=== PATIENT | female | born 1945 | race Caucasian/White ===

== ENCOUNTER 2019-06-16 13:21 | Emergency (ER) | payer MEDICARE, SELFPAY ==
[2019-06-16 13:31] VITALS: BP 134/79; PULSE 89; RESP 20; TEMP 36.8; O2SAT 98
--- NOTE | 2019-06-16 13:31 | ED.GENADULT ---
HPI - General Adult General Chief complaint: Recheck/Abnormal Lab/Rx Stated complaint: trach came out wont go back in Time Seen by Provider: 06/16/19 13:30 Source: patient Mode of arrival: Ambulatory Limitations: no limitations History of Present Illness HPI narrative: Patient comes emergency department complaining of her tracheostomy tube coming out. She states that she had a trach placed about 2 and [address] months ago [address] Dr. Andino at [facility], and that it has come out a couple of times since placement. However, the patient states that normally she is able to replace herself right away. This morning however, the patient states she was unable to get the tracheostomy tube back in place, and estimates that the tube was out for about an hour before coming to the emergency department. Patient denies any difficulty breathing. She has not had a cough or fever. No choking episodes since the tube came out. Patient states she is seen for her metastatic breast cancer by Dr. Flores at [facility] in [place]. She is not exactly sure why she had to have the trach placed. She says it was ?because of her breast cancer?, but cannot specify exactly for what reason, such as mass effect on the airway or nerve dysfunction. Patient denies difficulty breathing with the trach tube out. Related Data Home Medications Medication Instructions Recorded Confirmed amlodipine 10 mg PO DAILY 06/16/19 06/16/19 lorazepam 0.25 - 0.5 mg PO DAILY PRN 06/16/19 06/16/19 mirtazapine 15 mg PO BEDTIME 06/16/19 06/16/19 sertraline [Zoloft] 100 mg PO DAILY 06/16/19 06/16/19 Review of Systems Constitutional Constitutional: Denies chills, Denies fatigue, Denies fever(s), Denies frequent falls, Denies lethargy and Denies weakness Eyes Eyes: Denies change in vision, Denies eye discharge, Denies irritation and Denies loss of vision ENT Ears, Nose, Mouth, and Throat: Denies change in voice, Denies dizziness, Denies neck pain, Denies sore throat and Denies throat swelling Cardiovascular Cardiovascular: Denies chest pain, Denies irregular heart rhythm, Denies lightheadedness, Denies palpitations, Denies dyspnea, Denies dyspnea on exertion and Denies orthopnea Respiratory Respiratory: Denies cough, Denies dyspnea, Denies dyspnea on exertion and Denies wheezing Gastrointestinal Gastrointestinal: Denies abdominal pain, Denies change in bowel habits, Denies diarrhea, Denies nausea and Denies vomiting Genitourinary Genitourinary: Denies hematuria, Denies flank pain, Denies urinary incontinence and Denies urinary urgency Musculoskeletal Musculoskeletal: Denies back pain, Denies muscle weakness, Denies neck pain, Denies numbness and Denies tingling Integumentary/Breasts Skin/Breast: Denies pruritus, Denies erythema, Denies rash and Denies wounds Neurologic Neurologic: Denies behavioral changes, Denies confusion, Denies dizziness, Denies frequent falls, Denies loss of vision, Denies numbness, Denies tingling and Denies weakness Psychiatric Psychiatric: Denies anxiety, Denies behavioral changes, Denies confusion, Denies depression, Denies homicidal ideation and Denies suicidal ideation Endocrine Endocrine: Denies fatigue, Denies flushing and Denies palpitations Hematologic/Lymphatic Hematologic/Lymphatic: Denies easy bruising Allergic/Immunologic Allergic/Immunologic: Denies urticaria, Denies throat swelling and Denies wheezing Patient History Medical History Metastatic breast cancer (Acute) Tracheostomy complication (Acute) Surgical History Status post tracheostomy (Acute) Social History (Updated 06/16/19 @ 15:02 by Samara Mo MD) Smoking Status: Never smoker Exam Initial Vital Signs Initial Vital Signs: Vital Signs Temperature 98.3 F 06/16/19 13:31 Pulse Rate 89 06/16/19 13:31 Respiratory Rate 20 06/16/19 13:31 Blood Pressure 134/79 06/16/19 13:31 Pulse Oximetry 98 06/16/19 13:31 Const General: cooperative and well developed Nutritional Appearance: well nourished Orientation: alert, awake, oriented x3 and not confused [facility] Head: normocephalic and atraumatic Ears: external ears normal Nose: external nose normal and No nasal discharge Face and sinus: face symmetric and No dry mucous membranes Mouth: oral mucosae normal and moist mucous membranes Teeth and gingiva: dentition normal Eyes General: appearance normal, both eyes and all related structures Eyelids: eyelids normal Conjunctivae: conjunctivae normal Sclera: sclerae normal Pupils: PERRL EOM: EOM intact bilaterally Neck Neck: normal visual inspection, trachea midline, No lymphadenopathy, No midline deformity and No JVD Lymphatic: No lymphedema Other: Patient has a midline tracheostomy site that is clean dry and intact. [place], healthy mucosal tissue is noted within the ostomy site. An approximately 4 mm diameter opening is noted within the mucosal tissue. A mild amount of air is coming out of the site with each breath. Chest Chest: normal inspection of the chest Resp Effort & Inspection: normal respiratory effort, able to speak in complete sentences, no respiratory distress and no use of accessory muscles Auscultation: clear to auscultation bilaterally, no rales, no rhonchi and no wheezes Other: Patient's voice is hoarse and airy, but she speaks otherwise without difficulty. She is breathing comfortably and in no apparent distress. Cardio Rate: regular rate Rhythm: regular rhythm Heart Sounds: no click, no gallops, no murmurs and no rubs Pulses: normal peripheral pulses GI Inspection: non-distended Palpation: soft, no hepatosplenomegaly, No guarding, No pulsatile mass and No tender Auscultation: normal bowel sounds Back/Spine/Pelvis Back: No CVA tenderness Cervical Spine: cervical ROM normal and No pain with cervical ROM Thoracic/Lumbar Spine: thoracic and lumbar spine normal to inspection Skin General: no rashes or lesions noted, No jaundice and No petechiae Neuro General: alert, oriented x3, gait normal and no focal motor deficits Speech: speech normal Extrem General: full ROM, no clubbing, cyanosis or edema, no pedal edema and no calf tenderness Psych Appearance: well kempt Mental Status: mental status grossly normal Attitude: cooperative Thought Content: normal and suicidality Judgment: judgment good Course Course Course Narrative: A new tube of the same size as the patient had had was obtained from central supply. They stated we did not carry any uncuffed tubes at this hospital, so we had to use a cuffed tube of the same size. With assistance from respiratory therapists, I did attempt to replace the tube. However, the patient had had too much tissue filling in the ostomy site at this time, and the tube was unable to be passed. I did consult Dr. López of General surgery, and he also attempted to replace the tube. However, efforts were all unsuccessful. At this point, I did call [facility], where the patient's tube had initially been placed, as Dr. López stated that we would not be able to do the tracheal dilatation procedure required to allow a new trach to pass. I spoke with Dr. Busby at [facility] and informed him of the patient's stable condition and the inability to have a tracheostomy tube replaced here. He requested that a small endotracheal tube be placed in the tracheostomy site. He requested that we inflate the cuff and pull it through the ostomy to try to dilate the opening. I did not feel that a dilatation procedure was appropriate in the emergency department and while I did place a 4.5 cuffed endotracheal tube, I did not attempt dilatation. The patient was reasonably comfortable and she had good air movement through the tube. I did speak with Dr. Busby again and advised him that I had placed the tube but that again I did not feel that a dilatation procedure was appropriate for the emergency department. He did state that the tube could be removed if the patient was stable, but at this point, having put in and secured it, I left in place for now. Dr. Busby did accept the patient transfer. I explained to the patient that she would need to be transferred to [facility] for further evaluation by ENT, and patient was agreeable. Orders Ordered: ED Orders 06/16/19 16:55 Complete Blood Count AUTO DIFF Stat Comprehensive Metabolic Panel Stat Partial Thromboplastin Time Stat Prothrombin Time INR Stat Vital Signs Vital signs: Vital Signs - 8 hr 06/16/19 13:31 06/16/19 15:47 06/16/19 18:30 Temperature 98.3 F Pulse Rate 89 91 H 90 Respiratory Rate 20 18 18 Blood Pressure 134/79 Blood Pressure [Left Arm] 154/90 H 145/84 H Pulse Oximetry 98 97 97 Medical Decision Making Medical Records Medical records reviewed: Yes I reviewed the patient's medical records. Lab Data Lab results reviewed: Yes I reviewed the patient's lab results. Result diagrams: 06/16/19 16:55 06/16/19 16:55 Labs: Lab Results 06/16/19 06/16/19 06/16/19 Range/Units 16:55 16:55 16:55 WBC 3.8 L (4.5-11.0) X10^3/uL RBC 3.08 L (4.0-5.2) X10^6/uL Hgb 9.2 L (12.0-16.0) g/dL Hct 27.9 L (36-46) % MCV 90.6 (80-100) fL MCH 29.8 (26-34) PG MCHC 32.9 (30-36) % RDW 17.7 H (11.6-14.8) % Plt Count 262 (150-400) X10^3/uL Neut % (Auto) 66.9 (50-75) % Lymph % (Auto) 19.8 L (25-40) % [place] % (Auto) 6.0 (3-14) % Eos % (Auto) 3.8 (2-4) % Baso % (Auto) 3.5 H (0-2) % Neut # (Auto) 2500 (0066-9098) /uL Lymph # (Auto) 800 L (1328-9744) /uL [place] # (Auto) 200 (0-900) /uL Eos # (Auto) 100 (0-450) /uL Baso # (Auto) 100 (0-100) /uL PT 12.2 (10.1-12.7) SECONDS INR 1.1 (0.9-1.3) APTT 32 (26.4-36.2) SECONDS Sodium 137 (137-145) mmol/L Potassium 3.6 (3.4-5.1) mmol/L Chloride 101 (98-107) mmol/L Carbon Dioxide 30 (22-32) mmol/L BUN 28 H (7-17) mg/dL Creatinine 0.70 (0.52-1.04) mg/dL Estimated GFR > 60.0 (>60) mL/min BUN/Creatinine Ratio 40.0 H (6-22) Glucose 91 (80-110) mg/dL Calcium 8.7 (8.4-10.2) mg/dL Total Bilirubin 0.4 (0.2-1.3) mg/dL AST 27 (14-36) IU/L ALT 18 (<35) IU/L Alkaline Phosphatase 70 (38-126) U/L Total Protein 6.6 (6.3-8.2) g/dL Albumin 3.7 (3.5-5.0) g/dL Globulin 2.9 (1.7-4.1) g/dL Albumin/Globulin Ratio 1.3 (1.0-2.8) Discharge Plan Departure Prescriptions: No Action sertraline [Zoloft] 100 mg Tablet 100 mg PO DAILY RF: 0 lorazepam 0.5 mg tablet 0.25 - 0.5 mg PO DAILY PRN (Reason: Anxiety) RF: 0 amlodipine 10 mg Tablet 10 mg PO DAILY RF: 0 mirtazapine 15 mg Tablet 15 mg PO BEDTIME RF: 0
--- NOTE | 2019-06-16 14:10 | PC.NURSE ---
Dr. López at bedside attemping to insert trach.
[2019-06-16] MEDS: LIDOCAINE 1% (PF) 2 ML (14:57)
[2019-06-16] MEDS: LIDOCAINE 1% (PF) 8 ML (14:57)
[2019-06-16 15:47] VITALS: BP 154/90; PULSE 91; RESP 18; O2SAT 97
[2019-06-16 17:04] LABS: Add Manual Diff / Slide Review NO; Basophils Absolute Auto 100 /uL (0-100); Basophils Percent Auto 3.5 % (0-2); Eosinophils Absolute Auto 100 /uL (0-450); Eosinophils Percent Auto 3.8 % (2-4); Hematocrit 27.9 % (36-46); Hemoglobin 9.2 g/dL (12.0-16.0); Lymphocytes Absolute Auto 800 /uL (1100-4500); Lymphocytes Percent Auto 19.8 % (25-40); Mean Corpuscular HGB Conc 32.9 % (30-36); Mean Corpuscular Hemoglobin 29.8 PG (26-34); Mean Corpuscular Volume 90.6 fL (80-100); Monocytes Absolute Auto 200 /uL (0-900); Neutrophils Absolute Auto 2500 /uL (1500-7000); Neutrophils Percent Auto 66.9 % (50-75); Platelet Count 262 X10^3/uL (150-400); Red Blood Cell Count 3.08 X10^6/uL (4.0-5.2); Red Cell Distribution Width 17.7 % (11.6-14.8); White Blood Cell Count 3.8 X10^3/uL (4.5-11.0)
[2019-06-16 17:12] LABS: INR 1.1 (0.9-1.3); Prothrombin Time 12.2 SECONDS (10.1-12.7)
[2019-06-16 17:14] LABS: Alanine Aminotransferase 18 IU/L (<35); Albumin 3.7 g/dL (3.5-5.0); Albumin Globulin Ratio 1.3 (1.0-2.8); Alkaline Phosphatase 70 U/L (38-126); Aspartate Aminotransferase 27 IU/L (14-36); Bilirubin Total 0.4 mg/dL (0.2-1.3); Blood Urea Nitrogen 28 mg/dL (7-17); Calcium 8.7 mg/dL (8.4-10.2); Carbon Dioxide 30 mmol/L (22-32); Chloride 101 mmol/L (98-107); Estimated Glomerular Filt Rate > 60.0 mL/min (>60); Globulin 2.9 g/dL (1.7-4.1); Glucose 91 mg/dL (80-110); HEMOLYSIS < 15 (0-50); Potassium 3.6 mmol/L (3.4-5.1); Sodium 137 mmol/L (137-145); Total Protein 6.6 g/dL (6.3-8.2)
[2019-06-16 17:15] LABS: PTT Partial Thromboplastin Tim 32 SECONDS (26.4-36.2)
[2019-06-16 18:30] VITALS: BP 145/84; PULSE 90; RESP 18; O2SAT 97
[2019-06-16 19:00] VITALS: RESP 18; O2SAT 96
== END 2019-06-16 19:15 | disposition short-term general hospital (02) ==
PROVIDERS: Emergency Provider Emergency Medicine
DX: J95.00 Unspecified tracheostomy complication (principal); C50.919 Malignant neoplasm of unspecified site of unspecified female breast
CPT/HCPCS: 36415; 80053; 85025; 85610; 85730; 99282; 99283